=== PATIENT | female | born 1965 | race Caucasian/White ===

== ENCOUNTER 2016-08-31 09:22 | Emergency (ER) | payer MEDICAID ==
[2016-08-31 10:02] LABS: BASOPHILS 0.2 % (0-2); EOSINOPHILS 0.9 % (0-7); HEMATOCRIT 40.1 % (36.0-48.0); HEMOGLOBIN 13.6 g/dL (12-16); IMMATURE GRANULOCYTES 0.2 % (0-5); LYMPHOCYTES 22.3 % (15-50); MCHC 33.9 g/dL (31.0-37.0); MCV 94.4 fL (80.0-100.0); MEAN PLATELET VOLUME 10.2 fL (7.4-10.4); MONOCYTES 7.6 % (2-11); NEUTROPHILS 68.8 % (40-80); PLATELET COUNT 184 10x3/uL (130-400); RBC 4.25 10x6/uL (4.00-5.40); RDW 12.8 % (11.5-14.5); WBC 4.5 10x3/uL (4.8-10.8)
[2016-08-31 10:22] LABS: HCG SERUM NEGATIVE (NEGATIVE)
== END 2016-08-31 11:53 | disposition home or self-care (01) ==
LOC: D.ER 09:22
PROVIDERS: Emergency Medicine
DX: N93.9 Abnormal uterine and vaginal bleeding, unspecified (principal); K21.9 Gastro-esophageal reflux disease without esophagitis; R10.2 Pelvic and perineal pain